=== PATIENT | male | born 1970 | race Caucasian/White ===

== ENCOUNTER 2017-08-20 00:57 | Emergency (ER) | payer MEDICAID ==
[2017-08-20 01:05] VITALS: BP 149/95
[2017-08-20] MEDS ORDERED: KETOROLAC TROMETHAMINE 0.45% 4 DROP/0.4 ML DROPERETTE OS ONE (01:47)
[2017-08-20] MEDS ORDERED: ERYTHROMYCIN 0.5% OPH OINTMENT 3.5 GM (ER DISP) OP PRN (01:47)
[2017-08-20] MEDS ORDERED: TETRACAINE HCL 0.5% OPH SOLN 4 ML OS ONE (01:47)
--- NOTE | 2017-08-20 01:47 | ER Document Report ---
ED Eye Complaint - General Mode of Arrival: Ambulatory Information source: Patient TRAVEL OUTSIDE OF THE [place] IN LAST 30 DAYS: No - HPI Onset: Yesterday Eye location: Left Injury: Yes Occurred at: Outdoors <TALHA BOWERS - Last Filed: 08/20/17 03:17> <CHELSEY BLACKWELL - Last Filed: 08/20/17 03:54> - General Chief Complaint: Eye Injury Stated Complaint: LEFT EYE INJURY Time Seen by Provider: 08/20/17 01:34 Notes: Patient is a 46-year-old male who presents to the emergency department today with complaints of left eye pain. Patient states he was weed eating yesterday and something flew up and hit him in the eye. Patient states he has had a slight headache since this event. Patient complains of photophobia. Patient states he feels like he has something in his left eye. (TALHA BOWERS) - Related Data Allergies/Adverse Reactions: No Known Allergies Allergy (Verified 06/25/13 14:16) Past Medical History - General Information source: Patient - Social History Smoking Status: Current Every Day Smoker Cigarette use (# per day): No Chew tobacco use (# tins/day): No Frequency of alcohol use: None Drug Abuse: None Lives with: Family Family History: Reviewed & Not Pertinent Patient has suicidal ideation: No Patient has homicidal ideation: No Pulmonary Medical History: Reports: Hx Asthma, Hx Pneumonia Malignancy Medical History: Reports Hx Colorectal Cancer GI Medical History: Reports: Hx Gastroesophageal Reflux Disease, Hx Hiatal Hernia Musculoskeltal Medical History: Reports Hx Arthritis Psychiatric Medical History: Reports: Hx Bipolar Disorder, Hx Depression Past Surgical History: Reports: Hx Appendectomy, Hx Bowel Surgery - colostomy reversal, Hx Colostomy - ileostomy, Hx Ileostomy, Hx Tonsillectomy - Immunizations Hx Diphtheria, Pertussis, Tetanus Vaccination: No <TALHA BOWERS - Last Filed: 08/20/17 03:17> Review of Systems - Review of Systems Constitutional: No symptoms reported EENT: See HPI, Eye pain - left Cardiovascular: No symptoms reported Respiratory: No symptoms reported Gastrointestinal: No symptoms reported Genitourinary: No symptoms reported Male Genitourinary: No symptoms reported Musculoskeletal: No symptoms reported Skin: No symptoms reported Hematologic/Lymphatic: No symptoms reported Neurological/Psychological: See HPI, Headaches -: Yes All other systems reviewed and negative <TALHA BOWERS - Last Filed: 08/20/17 03:17> Physical Exam <TALHA BOWERS - Last Filed: 08/20/17 03:17> <CHELSEY BLACKWELL - Last Filed: 08/20/17 03:54> - Vital signs Vitals: Temp Pulse Resp BP Pulse Ox 98.5 F 81 18 149/95 H 98 08/20/17 01:03 08/20/17 01:03 08/20/17 01:03 08/20/17 01:03 08/20/17 01:03 - Notes Notes: Physical Exam: General: Alert, appears mildly uncomfortable. HEENT: Normocephalic. Atraumatic. PERRLA. Extraocular movements intact. Oropharynx clear. Fluorescein uptake between the 10 and 11 o'clock position in the left eye, approximately 0.5 cm in width, tearing, photophobia, subconjunctival hemorrhage to medial portion of the eye. Neck: Supple. Respiratory: No respiratory distress. Abdominal: Normal Inspection. No distension. Extremities: Moves all four extremities. Neurological: Normal cognition. AAOx4. Normal speech. Psychological: Normal affect. Normal Mood. Skin: Warm. Dry. Normal color. (TALHA BOWERS) Course <TALHA BOWERS - Last Filed: 08/20/17 03:17> <CHELSEY BLACKWELL - Last Filed: 08/20/17 03:54> - Re-evaluation Re-evalutation: 08/20/17 Patient is a 46-year-old male who comes in complaining of eye pain. Patient does not have a foreign body that I can visualize. Patient does have a large corneal abrasion and an concomitant iritis. Patient feels better after tetracaine drops. Patient will be given ketorolac drops. He also be given erythromycin ointment. He is to follow-up with ophthalmology tomorrow. Patient understands and agrees with plan. Stable for discharge. Return if any worsening or concerning symptoms. No other injuries reported. (CHELSEY BLACKWELL) - Vital Signs Vital signs: Temp Pulse Resp BP Pulse Ox 98.5 F 81 18 149/95 H 98 08/20/17 01:03 08/20/17 01:03 08/20/17 01:03 08/20/17 01:03 08/20/17 01:03 Procedures - Eye Procedure Left Alcaine Drops Administered: Yes Fluorescein applied: Left Antibiotic Oinment/Drps Admin: Left eye Slit lamp used: No <CHELSEY BLACKWELL - Last Filed: 08/20/17 03:54> Discharge <TALHA BOWERS - Last Filed: 08/20/17 03:17> <CHELSEY BLACKWELL - Last Filed: 08/20/17 03:54> - Discharge Clinical Impression: Iritis Corneal abrasion, left Qualifiers: Encounter type: initial encounter Qualified Code(s): S05.02XA - Injury of conjunctiva and corneal abrasion without foreign body, left eye, initial encounter Condition: Stable Disposition: HOME, SELF-CARE Instructions: Corneal Abrasion ([facility]), Iritis ([facility]) Forms: Return to Work Referrals: HUI CERON MD [ACTIVE STAFF] - 08/21/17 Scribe Attestation: 08/20/17 03:54 I personally performed the services described in the documentation, reviewed and edited the documentation which was dictated to the scribe in my presence, and it accurately records my words and actions. (CHELSEY BLACKWELL) Scribe Documentation - Scribe Written by Scribe:: Remy Monet, 08/20/2017 0216 acting as scribe for :: Carmela <TALHA BOWERS - Last Filed: 08/20/17 03:17>
[2017-08-20] MEDS ORDERED: ACETAMINOPHEN 325 MG TABLET PO ONE (02:23)
== END 2017-08-20 02:35 | disposition home or self-care (01) ==
LOC: ER 00:57
DX: S05.02XA Injury of conjunctiva and corneal abrasion without foreign body, left eye, initial encounter (principal); H20.9 Unspecified iridocyclitis; F17.200 Nicotine dependence, unspecified, uncomplicated; W22.8XXA Striking against or struck by other objects, initial encounter; Y93.H2 Activity, gardening and landscaping; Y92.009 Unspecified place in unspecified non-institutional (private) residence as the place of occurrence of the external cause
CPT/HCPCS: 99283; J3490 ×2

== ENCOUNTER → 2018-09-24 | Outpatient (CLI) | payer MEDICAID ==
--- NOTE | 2018-09-24 14:13 | RADIOLOGY REPORT (SQ) ---
EXAM DESCRIPTION: C SP 4 OR 5 VIEWS COMPLETED DATE/TIME: 09/24/2018 10:49 am REASON FOR STUDY: MIDLINE LBP WITHOUT SCIATICA; UNSPEC CHRONICITY; NECK PAIN M54.5 LOW BACK PAIN M5 4.2 CERVICALGIA COMPARISON: 10/26/2015 NUMBER OF VIEWS: Five views. TECHNIQUE: AP, lateral, obliques and odontoid radiographic images acquired of the cervical spine. LIMITATIONS: None. FINDINGS: MINERALIZATION: Normal. ALIGNMENT: There is very slight retrolisthesis of C5 on C6 there is slight anterolisthesis of C7 on T 1. This is stable from prior study. VERTEBRAE: Vertebral bodies of normal height. DISCS: There is disc space narrowing at C2-3, C5-C6 and C6-C7. FORAMINA: There is foraminal narrowing on the left for at C4-5 and C5-C6. LATERAL AND POSTERIOR ELEMENTS: Facets, lateral masses and spinous processes without significant find ings. HARDWARE: None in the spine. SOFT TISSUES: No masses or calcifications. Lung apices clear. OTHER: No other significant finding. IMPRESSION: Mild multilevel spondylosis with asymmetric narrowing of the left neural foramina at C4- 5 and C5-C6. TECHNICAL DOCUMENTATION: JOB ID: [id number] [employer]- All Rights Reserved Reading location - IP/workstation name: [email or web address]
--- NOTE | 2018-09-24 14:14 | RADIOLOGY REPORT (SQ) ---
EXAM DESCRIPTION: LUMBAR SPINE COMPLETE COMPLETED DATE/TIME: 09/24/2018 10:49 am REASON FOR STUDY: MIDLINE LBP WITHOUT SCIATICA; UNSPEC CHRONICITY; NECK PAIN M54.5 LOW BACK PAIN M5 4.2 CERVICALGIA COMPARISON: 10/26/2015 NUMBER OF VIEWS: Five views including obliques. TECHNIQUE: AP, lateral, oblique, and sacral radiographic images acquired of the lumbar spine. LIMITATIONS: None. FINDINGS: MINERALIZATION: Normal. SEGMENTATION: Normal. No transitional anatomy. ALIGNMENT: Normal. VERTEBRAE: Maintained height. No fracture or worrisome bone lesion. DISCS: There is very mild disc space narrowing at L3-L4, L4-L5 and L5-S1. POSTERIOR ELEMENTS: Pedicles and facets are intact. No pars defect or posterior arch defects. HARDWARE: None in the spine. PARASPINAL SOFT TISSUES: Normal. PELVIS: Intact as visualized. No fractures or worrisome bone lesions. SI joints intact. OTHER: No other significant finding. IMPRESSION: Mild disc degenerative disease at L3-L4, L4-L5 and L5-S1. TECHNICAL DOCUMENTATION: JOB ID: [id number] [employer]- All Rights Reserved Reading location - IP/workstation name: [email or web address]
== END ==
LOC: OD 10:28
PROVIDERS: ATTEND Family Medicine
DX: M54.5 Low back pain (principal); M54.2 Cervicalgia; M51.37 Other intervertebral disc degeneration, lumbosacral region; M48.02 Spinal stenosis, cervical region; M47.892 Other spondylosis, cervical region
CPT/HCPCS: 72050; 72110

== ENCOUNTER → 2019-07-26 | Outpatient (CLI) | payer MEDICAID ==
[2019-07-26 15:53] LABS: ANION GAP 8 (5-19); BLOOD UREA NITROGEN 9 mg/dL (7-20); CALCIUM 10.2 mg/dL (8.4-10.2); CARBON DIOXIDE 28 mmol/L (22-30); CHLORIDE 95 mmol/L (98-107); GLUCOSE 87 mg/dL (75-110)
[2019-07-26 16:07] LABS: POTASSIUM 2.8 mmol/L (3.6-5.0)
== END ==
LOC: OD 14:40
PROVIDERS: ATTEND Family Medicine
DX: E87.6 Hypokalemia (principal); Z12.5 Encounter for screening for malignant neoplasm of prostate
CPT/HCPCS: 36415; 80048; 84153